=== PATIENT | male | born 1955 | race Caucasian/White ===

== ENCOUNTER 2018-11-30 09:21 | Emergency (ER) | payer OTHER ==
[~2018-11-30] VITALS: Ht 167.6 cm; Wt 81.6 kg
[2018-11-30 09:21] VITALS: Ht 167.6 cm; Wt 81.6 kg
[2018-11-30 10:44] LABS: microscopic required? NO
[2018-11-30 10:49] LABS: BASOPHIL % 0.5 % (0-2); PLATELET COUNT 141 x10^3mcL (130-400); RED CELL DISTRIBUTION WIDTH 13.7 % (11.5-14.5)
[2018-11-30 10:58] LABS: urine erythrocyte NEGATIVE (NEGATIVE)
[2018-11-30 11:37] LABS: CARBON DIOXIDE 29.1 mmol/L (21-32); CHLORIDE SERUM 97 mmol/L (98-107); CREATININE SERUM 0.7 mg/dL (0.7-1.3); GFR1 > 60 mL/min; GLUCOSE SERUM 82 mg/dL (74-106); POTASSIUM SERUM 4.2 mmol/L (3.5-5.1); SODIUM SERUM 130 mmol/L (136-145)
[2018-11-30 11:41] LABS: AMPHETAMINE QUAL UR NONE DETECTED (See below)
[2018-11-30 11:49] LABS: ALBUMIN 3.8 g/dL (3.4-5.0); ALKALINE PHOSPHATASE 79 U/L (46-116); ALT/SGPT 23 U/L (16-63); AST/SGOT 21 U/L (15-37); BILIRUBIN TOTAL 0.28 mg/dL (0.20-1.00); CHOLESTEROL 160 mg/dL (<200); HDL CHOLESTEROL 47 mg/dL (40-60); LIPASE 54 IU/L (73-393); TOTAL PROTEIN, SERUM 8.2 g/dL (6.4-8.2)
[2018-11-30 11:52] LABS: AMYLASE 16 U/L (25-115); T4(THYROXINE) 2.3 ug/dL (4.7-13.3)
[2018-11-30 12:39] LABS: CALCIUM 9.5 mg/dL (8.5-10.1)
[2018-11-30 15:05] VITALS: BP 134/78
== END 2018-11-30 15:05 | disposition home or self-care (01) ==
LOC: ED 09:21
PROVIDERS: Emergency Medicine
DX: M25.562 Pain in left knee (principal); R53.1 Weakness; G93.89 Other specified disorders of brain; E87.1 Hypo-osmolality and hyponatremia; E03.9 Hypothyroidism, unspecified; F99 Mental disorder, not otherwise specified
CPT/HCPCS: 36415; 83880; G0480

== ENCOUNTER 2019-03-12 15:48 | Inpatient (IN) | payer OTHER, MEDICARE ==
[~2019-03-12] VITALS: Ht 167.6 cm; Wt 82.1 kg
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
[2019-03-12 16:35] LABS: BASOPHIL % 0.3 % (0-2); RED CELL DISTRIBUTION WIDTH 13.4 % (11.5-14.5)
[2019-03-12 16:37] LABS: PLATELET COUNT 119 x10^3mcL (130-400)
[2019-03-12 16:39] LABS: CALCIUM 7.6 mg/dL (8.5-10.1); CARBON DIOXIDE 24.5 mmol/L (21-32); CHLORIDE SERUM 105 mmol/L (98-107); CREATININE SERUM 0.9 mg/dL (0.7-1.3); GFR1 > 60 mL/min; GLUCOSE SERUM 121 mg/dL (74-106); SODIUM SERUM 141 mmol/L (136-145)
--- NOTE | 2019-03-12 16:41 | NUR ---
XRAY AT BEDSIDE.
[2019-03-12 16:47] LABS: ALKALINE PHOSPHATASE 62 U/L (46-116); ALT/SGPT 14 U/L (16-63); AST/SGOT 9 U/L (15-37); BILIRUBIN TOTAL 0.26 mg/dL (0.20-1.00); TOTAL PROTEIN, SERUM 6.7 g/dL (6.4-8.2)
[2019-03-12 16:49] LABS: ALBUMIN 3.1 g/dL (3.4-5.0)
--- NOTE | 2019-03-12 17:22 | NUR ---
BROWN SUBSTANCE NOTED ON CREASES OF MOUTH. DR. CARMICHAEL MADE AWARE. VSS. WILL CONTINUE TO MONITOR.
--- NOTE | 2019-03-12 18:42 | NUR ---
GUIDED US WITH DR. CARMICHAEL. 18G RIGHT ARM.
--- NOTE | 2019-03-12 19:05 | NUR ---
PT IN POSITION OF COMFORT. RESP E/U. VSS. LAB AT BEDSIDE. WILL CONTINUE TO MONITOR.
--- NOTE | 2019-03-12 19:14 | NUR ---
REPORT GIVEN TO RIGO GUTIERREZ TO ASSUME CARE OF PT.
--- NOTE | 2019-03-12 19:15 | NUR ---
RECEIVED REPORT FROM ANAHY GUTIERREZ. ASSUMING ALL CARE
[2019-03-12 19:31] LABS: microscopic required? NO
[2019-03-12 19:42] LABS: urine erythrocyte NEGATIVE (NEGATIVE)
--- NOTE | 2019-03-12 20:51 | NUR ---
REPORT GIVEN TO SILVANO GUTIERREZ FOR CONTINUITY OF CARE. ALL QUESTIONS/CONCERNS ADDRESED AT THIS TIME.
[2019-03-12 21:10] LABS: AMPHETAMINE QUAL UR NONE DETECTED (See below)
[2019-03-12 21:15] LABS: CHOLESTEROL/HDL RATIO 2.7
--- NOTE | 2019-03-12 21:15 | NUR ---
RECEIVED PT FROM ED VIA [place],CAME IN DUE TO TREMORS. PT STATED THAT HE IS FROM [facility]. PT IS AWAKE, ABLE TO STATE NAME, CONFUSED. PUPILS ARE SLUGGISH. LEFT HAND BISQUE FINISHER IS WEAKER THAN THE RIGHT. NO FACIAL DROOP NOTED. SLURRED AND SLOW SPEECH NOTED. NO SOB NOTED, O2 SAT=95%, RA. NO S/S OF CHEST PAIN/PRESSURE, SR ON THE MONITOR. NO S/S OF ABDOMINAL DISCOMFORT. BOWEL SOUNDS ACTIVE. ABDOMEN IS SOFT AND ROUND. VOIDS. W/ HISTORY OF [place]AV[place] ON THE BACK AND LEFT CHEST, NOTED SCARS AND SOME PINK DISCOLORATIONS. W/ DARK BROWN DISCOLORATIONS ON THE RIGHT FOOT AND A DEPRESSION ON THE LEFT ELBOW BUT SKIN IS NOTED TO BE INTACT. W/ BUE SWELLING, LEFT GREATER THAN THE RIGHT. W/ TRACE EDEMA ON BLE. PADDED SIDE RAILS UPX2. CALL LIGHT ON REACH. HOB ELEVATED AT 30 DEG. PRIMARY NURSE SILVANO FOR CONTINUITY OF CARE
[2019-03-12 21:19] LABS: T3 TOTAL 0.91 ng/mL
[2019-03-12 21:22] LABS: FREE T4 1.11 ng/dL (0.76-1.46); FREE THYROXINE INDEX 2.5 ug/dL (1.4-4.5); T4(THYROXINE) 6.8 ug/dL (4.7-13.3)
[2019-03-12 21:36] VITALS: BP 109/70
[2019-03-12 21:50] VITALS: Ht 167.6 cm; Wt 82.1 kg
[2019-03-12] MEDS ORDERED: SYN1 PO (22:58)
[2019-03-12] MEDS ORDERED: OLANZAPINE10 MG PO (22:59)
[2019-03-12] MEDS ORDERED: [UNRECOGNIZED DRUG - OTHER] IV (23:00)
[2019-03-12] MEDS ORDERED: VAL250 PO (23:06)
[2019-03-12] MEDS ORDERED: BENZTROPINE MESY2 MG PO (23:07)
[2019-03-12] MEDS ORDERED: MIRTAZAPINE45 M1 PO (23:07)
[2019-03-13 05:51] VITALS: BP 141/90
--- NOTE | 2019-03-13 06:20 | NUR ---
ORDERED US CAROTID IN PROGRESS AT BEDSIDE
--- NOTE | 2019-03-13 06:32 | NUR ---
NO SIGNIFICANT CHANGES TO REPORT, PT COMPLIED WITH NURSING CARE THROUGHOUT THE SHIFT WITH NO ACUTE EVENTS OVERNIGHT. NO ACUTE DISTRESS OBSERVED AT THIS TIME, PT LAYING IN BED, BREATHING EVEN AND UNLABORED. COMFORT AND SAFETY MEASURES MAINTAINED. ALL NEEDS ASSESSED AND ATTENDED TO. CALL LIGHT WITHIN REACH. WILL CONTINUE TO MONITOR AND ENDORSE CARE TO DAY SHIFT NURSE
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
[2019-03-13 08:37] LABS: CALCIUM 7.4 mg/dL (8.5-10.1); CARBON DIOXIDE 24.4 mmol/L (21-32); CHLORIDE SERUM 105 mmol/L (98-107); CREATININE SERUM 0.6 mg/dL (0.7-1.3); GFR1 > 60 mL/min; GLUCOSE SERUM 128 mg/dL (74-106); MAGNESIUM 1.8 mg/dL (1.8-2.4); PHOSPHOROUS 2.9 mg/dL (2.5-4.9); POTASSIUM SERUM 3.8 mmol/L (3.5-5.1); SODIUM SERUM 139 mmol/L (136-145)
[2019-03-13 08:43] LABS: BASOPHIL % 0.6 % (0-2); PLATELET COUNT 111 x10^3mcL (130-400); RED CELL DISTRIBUTION WIDTH 13.8 % (11.5-14.5)
[2019-03-13 08:44] VITALS: BP 121/77
--- NOTE | 2019-03-13 09:00 | NUR ---
PATIENT HAS TOLERATED DIET AND GAVE MEDICATIONS ORDERED EXCEPT THE VALPORIC IT IS NOT AVAILABLE AT THIS TIME. PATIENT DENIES PAIN AND HAS BEEN A BIT ANXIOUS AND NEEDS REASSURANCE AT TIMES. PT WORKED WITH THE PATIENT AHD TOLERATED WELL.
[2019-03-13 13:00] VITALS: BP 121/77
[2019-03-13 13:43] VITALS: BP 102/66
--- NOTE | 2019-03-13 15:50 | NUR ---
PATIENT IS FOR DISCHARGE HOME. PATIENT AHD BEEN NOTIFIED AND BOARD AND CARE CALLED AND WILL BE ROBOTIC TECHNICIAN AT AROUND 600PM.
[2019-03-13 17:28] VITALS: BP 115/70
--- NOTE | 2019-03-13 17:40 | NUR ---
PATIENTS IV REMOVED AND TELE AND AWAITING THE BOARD AND CARE FOR SIGNAL SUPERVISOR.
== END 2019-03-13 18:52 | disposition home or self-care (01) | DRG 52 ==
LOC: ED 15:48 → DU 20:04 → EDBEDREQ 20:05 → DU 21:15
PROVIDERS: Emergency Medicine; ADMIT General Practice
DX: G93.41 Metabolic encephalopathy (principal); N17.0 Acute kidney failure with tubular necrosis; J18.9 Pneumonia, unspecified organism; E44.0 Moderate protein-calorie malnutrition; F03.90 Unspecified dementia, unspecified severity, without behavioral disturbance, psychotic disturbance, mood disturbance, and anxiety; E86.0 Dehydration; E83.51 Hypocalcemia; E03.9 Hypothyroidism, unspecified; F31.9 Bipolar disorder, unspecified; F20.9 Schizophrenia, unspecified; M10.9 Gout, unspecified; G40.909 Epilepsy, unspecified, not intractable, without status epilepticus; Z68.29 Body mass index [BMI] 29.0-29.9, adult; Z87.891 Personal history of nicotine dependence; Z87.01 Personal history of pneumonia (recurrent); Z79.899 Other long term (current) drug therapy
CPT/HCPCS: 83880; 84439; 97116-GP; G0378; G0480; J0696; J7030; J7060; Q0092